=== PATIENT | male | born 1950 | race Caucasian/White ===

== ENCOUNTER → 2020-04-12 10:25 | Outpatient (CLI) | payer MEDICARE, MEDICAID, SELFPAY ==
[2020-04-12 11:20] LABS: COVID19 -Nasal RAPID Negative (Negative)
== END ==
PROVIDERS: PCP Student in an Organized Health Care Education/Training Program; Referring Provider Internal Medicine; Visit Provider Internal Medicine
DX: Z01.812 Encounter for preprocedural laboratory examination (principal); Z20.822 Contact with and (suspected) exposure to COVID-19
CPT/HCPCS: 87635; C9803

== ENCOUNTER → 2020-04-12 14:53 | Outpatient (CLI) | payer MEDICARE, MEDICAID, SELFPAY ==
--- NOTE | 2020-04-18 10:45 | PM.PFT.1 ---
Pulmonary Function Test Referral & Results Date Patient Seen: 04/12/20 Requesting provider: Chin Faith Results: The spirometry demonstrates an FVC of 4.43 L which is 92% of predicted. The FEV1 was measured at 3.08 L which is 87% of predicted. The FEV1/FVC ratio was 70 which is 94% of predicted. Following the administration of bronchodilator there was no appreciable change. Lung volumes show an SVC of 4.72 L which is 96% of predicted. The diffusing capacity was measured at 31.80 which is 90% of predicted. The maximum voluntary ventilation was normal Interpretation: This study demonstrates normal pulmonary function
== END ==
PROVIDERS: PCP Student in an Organized Health Care Education/Training Program; Referring Provider Student in an Organized Health Care Education/Training Program; Visit Provider Student in an Organized Health Care Education/Training Program
DX: Z01.812 Encounter for preprocedural laboratory examination (principal); R06.02 Shortness of breath; Z20.822 Contact with and (suspected) exposure to COVID-19
CPT/HCPCS: 87635; 94060; 94726; 94729; C9803

== ENCOUNTER → 2023-01-28 11:39 | Outpatient (CLI) | payer MEDICARE, MEDICAID, SELFPAY ==
[2023-01-28 20:54] LABS: Adenovirus F 40/41 Not Detected (Not Detect); Astrovirus Not Detected (Not Detect); Campylobacter Not Detected (Not Detect); Clostridium difficile toxin AB Not Detected (Not Detect); Cryptosporidium Not Detected (Not Detect); Cyclospora cayetanensis Not Detected (Not Detect); Entamoeba histolytica Not Detected (Not Detect); Enteroaggregative E.coli Not Detected (Not Detect); Enteropathogenic E.coli Not Detected (Not Detect); Enterotoxigenic E.coli It/st Detected (Not Detect); Giardia lamblia Not Detected (Not Detect); Norovirus GI/GII Detected (Not Detect); Plesiomonsa shigelloides Not Detected (Not Detect); Rotavirus A Not Detected (Not Detect); Salmonella Not Detected (Not Detect); Sapovirus Not Detected (Not Detect); Shiga-like toxin-prod E.coli Not Detected (Not Detect); Shigella/Enteroinvasive E.coli Not Detected (Not Detect); Vibrio Not Detected (Not Detect); Vibrio cholerae Not Detected (Not Detect); Yersinia enterocolitica Not Detected (Not Detect)
== END ==
PROVIDERS: PCP Physician Assistant Medical; Visit Provider Physician Assistant Medical
DX: R19.7 Diarrhea, unspecified (principal); K52.9 Noninfective gastroenteritis and colitis, unspecified
CPT/HCPCS: 87045; 87177; 87329; 87507; 87899

== ENCOUNTER 2024-11-10 11:07 | Day surgery (SDC) | payer OTHER, MEDICAID, SELFPAY ==
[2024-11-10 11:35] VITALS: BP 140/82; PULSE 62; RESP 16; TEMP 36.2; O2SAT 98
[2024-11-10] MEDS: LACTATED RINGERS 1,000 ML 42 ML IV (11:49)
--- NOTE | 2024-11-10 11:59 | PM.HP.IH.1 ---
History of Present Illness History of Present Illness Date Patient Seen: 11/10/24 Time Patient Seen: 11:59 Chief complaint: Screening Colonoscopy Narrative: Tj is a 74-year-old man who is here for colonoscopy. He did have a colonoscopy in 2020 out on [facility]. No polyps were found at that time. It sounds as if you may have been told his prep was suboptimal. He does not recall ever having polyps during colonoscopy. No family history of colon cancer. He elects to proceed without sedation since he would like drive home. [facility] Medical History (Updated 08/30/24 @ 21:00 by Sandy Austin) Sun-damaged skin Sleep apnea in adult Contact dermatitis COPD (chronic obstructive pulmonary disease) Hyperlipemia Asthma PTSD (post-traumatic stress disorder) Herpes Cataracts, bilateral GERD (gastroesophageal reflux disease) Hypertension Skin cancer Surgical History (Updated 08/30/24 @ 21:00 by Sandy Austin) Anesthesia History of cataract removal with insertion of prosthetic lens (~2024) History of partial knee replacement (~2019) Hx of CABG (~1999) Family History (Updated 08/30/24 @ 21:01 by Sandy Austin) Father History of heart disease Hypertension Stroke Mother Diabetes mellitus History of heart disease Hyperlipidemia Hypertension Brother History of heart disease Hypertension Hyperlipidemia Sister Cancer Sister Cancer Social History Smoking Status: Former smoker Meds Home Medications and Allergies Home Medications ?Medication ?Instructions ?Recorded ?Confirmed ?Type albuterol sulfate 90 mcg/actuation inhalation 01/27/23 07/01/24 History aerosol inhaler (Ventolin HFA) budesonide-formoterol HFA 160 inhalation 01/27/23 07/01/24 History mcg-4.5 mcg/actuation aerosol inhaler (Symbicort) pantoprazole 40 mg tablet,delayed 40 mg PO DAILY 01/27/23 11/10/24 History release atorvastatin 40 mg tablet 40 mg PO DAILY 07/01/24 11/10/24 History lisinopril 20 1 tab PO BID 07/01/24 11/10/24 History mg-hydrochlorothiazide 12.5 mg tablet triamcinolone acetonide 0.5 % 1 applic topical BID #15 grams 07/01/24 11/10/24 Rx topical cream peg 3350-electrolytes 236 240 ml PO Q10M #4,000 mL 11/08/24 11/10/24 Rx gram-22.74 gram-6.74 gram-5.86 gram solution (Golytely) Allergies Allergy/AdvReac Type Severity Reaction Status Date / Time Figeoma-SKA-PcS Reductase AdvReac Mild Muscle Pain Verified 11/10/24 11:28 Inhibitor Exam Vital Signs (past 8 hours): - 11/10/24 11:35 Temperature 97.1 F L Pulse Rate 62 Respiratory Rate 16 Blood Pressure 140/82 Pulse Oximetry 98 Oxygen Delivery Method Room Air Oxygen Delivery Method Room Air Const General: No acute distress Assessment & Plan Assessment and plan (1) Colon cancer screening: Status: Acute Plan Colonoscopy without sedation Time-Based Coding :: [TOTAL MINUTES] spent with patient and on the chart (including review of chart, obtaining history, exam, reviewing outside data, placing orders, documenting exam and treatment plan, and counseling patient) on [DATE]. PROFEE Certified Ophthalmic Assistant Document charge(s): No
--- NOTE | 2024-11-10 12:25 | PM.OP.COLON ---
Operative Date/Time/Diagnoses Date of procedure: 11/10/24 Time of procedure: 12:32 Pre-op diagnosis: Colon cancer screening Post-op diagnosis: same Procedure & Clinicians Study performed: Colonoscopy Same procedure(s) as scheduled: Yes Surgeon: Bruno Stone Anesthesia Type: MAC +/- Procedure Notes Procedure in detail: Surgeon: Bruno Stone MD Anesthesia: None Procedure: The patient was brought to the endoscopy suite, placed in left lateral decubitus position. The patient was connected to monitoring devices. A time-out was performed. Sedation was administered. Once the patient was adequately sedated, a digital rectal exam was performed and was normal. The scope was then inserted and advanced to the cecum where the appendiceal orifice was identified and photographed. The scope was then slowly withdrawn over greater than 6 minutes. The mucosa was thoroughly inspected. No polyps were found. There was moderate sigmoid colon diverticulosis. The scope was retroflexed in the rectum. No other abnormalities were found. The scope was straightened and removed. The patient was awakened and brought to recovery. Scope withdrawal time: 7 minutes Sedation time: 0 EBL: 0 Findings: Sigmoid colon diverticulosis Post-procedure Recommendations: High fiber diet Disposition: PACU
== END 2024-11-10 13:50 | disposition home or self-care (01) ==
PROVIDERS: PCP Physician Assistant Medical; Referring Provider Surgery; Visit Provider Surgery
PROC: 0DJD8ZZ Inspection of Lower Intestinal Tract, Via Natural or Artificial Opening Endoscopic (ICD-10-PCS; CPT 45378; principal; 2024-11-10 12:45)
DX: Z12.11 Encounter for screening for malignant neoplasm of colon (principal); Z87.891 Personal history of nicotine dependence; K57.30 Diverticulosis of large intestine without perforation or abscess without bleeding
CPT/HCPCS: G0121